=== PATIENT | male | born 1995 | race Caucasian/White ===

== ENCOUNTER 2017-06-11 10:55 | Emergency (ER) | payer BC ==
[2017-06-11] MEDS ORDERED: CEPHALEXIN 500 MG CAP PO ONE (11:42)
--- NOTE | 2017-06-11 11:48 | EDPHY ---
H & P Time Seen by Provider: 06/11/17 11:31 HPI/ROS: CHIEF COMPLAINT: Left upper extremity laceration post punching glass HISTORY OF PRESENT ILLNESS: 21-year-old [id number] male states that last evening he was locked out of his house therefore punched a window to gain entry. He was initially seen at [facility] and referred to the ER for evaluation for concerns over extensor deficit as he is unable to extend 3rd digit left hand at the PIP joint. He is also noted to have a left antecubital fossa laceration when his arm proceeded thru the window. PHYSICAL EXAM (Prior to examination, patient consented to physical exam, hands were washed and my usual and customary physical exam procedures followed) 1) GENERAL: Well-developed, well-nourished, alert and oriented. Appears to be in no acute distress. 2) HEAD: Normocephalic 3) HEENT: sclera anicteric 4) LUNGS: Breathing comfortably. 5) SKIN: Left upper extremity: Left medial antecubital fossa 4 cm superficial laceration. No visible vascular deficits. No signs of infection. No visible foreign body. Left dorsal 3rd digit laceration at the PIP joint. There appears to be a possible joint capsular compromise component to his PIP joint of same digit.. He is unable to extend at the PIP joint. He has multiple superficial abrasions lacerations to remainder of his hand. Full sensation all digits [ Smoking Status: Current every day smoker Constitutional: Initial Vital Signs Temperature (C) 36.6 C 06/11/17 11:05 Heart Rate 88 06/11/17 11:05 Respiratory Rate 16 06/11/17 11:05 Blood Pressure 131/88 H 06/11/17 11:05 O2 Sat (%) 97 06/11/17 11:05 O2 Delivery Mode Room Air Allergies/Adverse Reactions: No Known Allergies Allergy (Unverified 06/11/17 11:16) Home Medications: Medication Instructions Recorded Cephalexin [Keflex] 500 mg PO TID 7 Days cap 06/11/17 MDM/Departure - MDM Imaging Results: Imaging Impressions Hand X-Ray 06/11/17 11:41 Impression: Negative for fracture or radiopaque foreign body. 2 Views Right Hand: Clinical Indications: Evaluate for possible foreign body; broken glass. Findings: A fracture or other acute osseous abnormality is not identified. The bone alignment is normal. Negative for radiopaque foreign body. Notation is made that glass can be occult on radiography. Impression: Negative for fracture or foreign body. Elbow X-Ray 06/11/17 11:42 Impression: Negative for fracture or radiopaque foreign body. 2 Views Right Hand: Clinical Indications: Evaluate for possible foreign body; broken glass. Findings: A fracture or other acute osseous abnormality is not identified. The bone alignment is normal. Negative for radiopaque foreign body. Notation is made that glass can be occult on radiography. Impression: Negative for fracture or foreign body. Images reviewed by myself Medications Given: Discontinued Medications Cephalexin HCl (Keflex) 500 mg PO EDNOW ONE PRN Reason: Protocol Stop: 06/11/17 11:43 Last Admin: 06/11/17 11:45 Dose: 500 mg ED Course/Re-evaluation: 1:11 p.m.: Consultation with on-call hand surgery Dr. Ivy Cruz who agrees with plan of skin closure, splinting, he would like to the patient is office tomorrow (Monday). The patient started on prophylactic antibiotics. Patient is agreeable with this plan. Care of patient under supervision of secondary supervising physician Dr Cardenas with whom I discussed case. - Depart Disposition: Home, Routine, Self-Care Clinical Impression: Finger laceration Qualifiers: Encounter type: initial encounter Finger: middle finger Damage to nail status: without damage Foreign body presence: without foreign body Laterality: left Qualified Code(s): S61.213A - Laceration without foreign body of left middle finger without damage to nail, initial encounter Condition: Good Instructions: Laceration (ED), Care For Your Stitches (ED) Additional Instructions: Return to the ER if you develop redness, swelling, discharge, warmth to the wound, red streaks going up your arm , or any other symptoms that concern you. Prescriptions: Cephalexin [Keflex] 500 mg PO TID 7 Days cap Referrals: Sohan Cruz MD [Medical Doctor] - 1 day without fail (Dr. Cruz would like to see you in the office tomorrow, call his office in the morning.)
[2017-06-11 13:29] VITALS: BP 128/70; PULSE 65; RESP 14; TEMP 98.2; O2SAT 98
== END 2017-06-11 13:29 | disposition home or self-care (01) ==
DX: S61.213A Laceration without foreign body of left middle finger without damage to nail, initial encounter (principal); F17.200 Nicotine dependence, unspecified, uncomplicated; W25.XXXA Contact with sharp glass, initial encounter
CPT/HCPCS: L3925

== ENCOUNTER 2017-07-05 16:14 | Day surgery (SDC) | payer BC ==
[2017-07-05] MEDS ORDERED: BUPIVACAINE 0.5% 30 ML SDV ONE (16:25)
[2017-07-05] MEDS ORDERED: BACITRACIN 50,000 UNITS/10 ML SYR IRR ONE ×2 (16:25→16:57)
[2017-07-05] MEDS ORDERED: ceFAZolin 2 GM/SWFI 2 GM/20 ML SYR IVP ONE (16:29)
[2017-07-05] MEDS ORDERED: LIDO/EPI 2%** Not for Epidural 20 ML MDV ONE (16:53)
--- NOTE | 2017-07-05 16:57 | PDHPUP ---
History & Physical Update H&P update statement: This history and physical update is based on an assessment of the patient which was completed after admission or registration (within 24 hours), but prior to the surgery/procedure. H&P update: H&P reviewed & patient examined, no change in patient's condition since H&P completed
[2017-07-05] MEDS ORDERED: cefTRIAXone 2 GM in STERILE WATER INJ 20 ML IV SCH (19:00)
[2017-07-05 19:20] VITALS: PULSE 79; RESP 16; TEMP 97.9; O2SAT 98
[2017-07-05 19:21] VITALS: BP 127/89
--- NOTE | 2017-07-06 15:57 | GOP ---
[f rep st] OPERATIVE REPORT DATE OF OPERATION: 07/05/2017 SURGEON: Sohan Cruz MD ANESTHESIA: Local lidocaine with epinephrine PREOPERATIVE DIAGNOSIS: Left long finger surgical site infection and failed central slip repair. POSTOPERATIVE DIAGNOSIS: Left long finger surgical site infection and failed central slip repair. PROCEDURE PERFORMED: 1. Irrigation and debridement of left long finger wound surgical site infection of skin, subcutaneou s tissue, and tendon. 2. Repair of left long finger flexor tendon at the central slip. FINDINGS: ESTIMATED BLOOD LOSS: 5 cc. INDICATIONS: This is a 21-year-old male who sustained a traumatic laceration to the central slip and bilateral band into his PIP joint when he punched a glass window. He was taken by me to the operatin g room on June 16 for repair of the laceration. This surgery proceeded uneventfully. At his first pos top, he had some mild serous drainage from the wound, and was given a prescription for antibiotics. T he following week, he was seen by our PA with worsening swelling and drainage from the wound. He arri lewis without a splint with a flexion deformity at the finger. At that point wound care was performed, a splint given with instruction to come back in 2 days. Today, he was seen both by me and our PA in t he clinic. I examined the wound. There was complete dehiscent at the site of his old traumatic wound. He had a boutonniere type ulcer on his finger. There was exposed suture in the bed of the wound. Ninfa s, felt this was wound site infection with failed repair, and I scheduled the patient for urgent retu rn to the OR for I and D. Discussed the risks and benefits. Risks include pain, bleeding, infection, need for further surgeries, wound healing complications, loss of function, loss of digits. He underst ood the risks. DESCRIPTION OF PROCEDURE: The patient was seen in the preoperative holding area. He was given the op portunity to ask any questions. All his questions were answered. Consent was signed. Surgical site wa s marked. I spoke with his mother as well. The patient was taken back to the operating room and was p repped and draped in the usual sterile fashion. After prepping and draping, a block was performed wit h 2% lidocaine with epinephrine by me. The skin was prepped and draped. The atraumatic skin was incis ed. The edges of the infected wound were incised. The diseased skin was excised sharply with a knife, and at this point cultures were taken. Of note, the patient received 2 g of Ancef. I also took tissu e sampling cultures in the tendon. There was fibrinous exudate and granulation type tissue over the t endon substance. I explored this, tried to define the tendon proper. The Prolene suture was completel y unraveled then I completed the tendon repair fail. The infected appearing tissue was curetted sharp ly with a rongeur. The clean tendons were visualized. This allowed visualization of the joint. The annalee int appeared unaffected, debriding all diseased appearing tissue. The wound was irrigated copiously w ith several liters of sterile saline and bacitracin . With the finger in full extension th ere was good coaptation of the tendon ends. Initially I had planned to perform a staged repair of the tendon after resolution of infection. However, I did not want to leave an exposed joint so I used 3- 0 Monocryl with 3 [id number] sutures to reapproximate the tendon ends to cover all the joint. Th is reapproximated the tendons well. At this point, a 3-0 nylon suture was used to perform a wound darion sure of the skin with the finger maintained in extension. After this was done, the finger was maintai clifton in extension without posture. Sterile dressing was applied. The patient was placed in a splint, maintaining the extension. He was t hen taken to the PACU in stable condition. POSTOPERATIVE CONDITION: Stable. POSTOPERATIVE PLAN: I had a prolonged discussion with the patient and his mother as far as the posto perative plan. I am concerned about infection in his finger. My recommendation is to admit the patien t, be on IV antibiotics and then tailor the antibiotics to culture results with consultation of ID. I discussed my recommendations with both the patient and his mother. They informed me that the patient has serious problems with anxiety and would not tolerate several nights in the hospital. They wished to discuss alternative options. I spoke with one of the infectious disease physicians for the best a lternative plan. Decision was made for the patient to be on a long-acting antibiotic. He was given 2 g of IV ceftriaxone with plan to see the ID doctor the following day where decision will be made to e ither continue IV ceftriaxone or start the patient on a course of Bactrim and Levaquin. Prescription was given . Was also instructed tomorrow to begin t.i.d. daily soaks with 50% hydrogen per oxide and water. He is to maintain his finger extension while performing soaks and reapply the splint . The patient has a plan to leave for several days for spring. I did discuss with him my concer ns with him leaving and to return and see me as soon as he comes back from his vacation for wound jordyn ck, and I will also follow his cultures with ID about his finger infection. /[id number]/MODL
== END 2017-07-05 19:25 | disposition home or self-care (01) ==
LOC: FSGY 16:14
PROVIDERS: ATTEND Orthopaedic Surgery Hand Surgery
DX: L08.9 Local infection of the skin and subcutaneous tissue, unspecified (principal); T81.4XXA Infection following a procedure, initial encounter
CPT/HCPCS: J0690; J0696